=== PATIENT | female | born 1970 | race African-American/Black ===

== ENCOUNTER 2020-03-14 08:23 | Inpatient (IN) | payer BC, OTHER ==
[~2020-03-14] VITALS: Ht 175.3 cm; Wt 97.8 kg
[~2020-03-14 08:23] MED LIST: AMOX-291; HYDR473S19
[2020-03-14] MEDS ORDERED: HYDROmorphone 1 MG/ML, 1ML INJ ONE ×2 (09:07→10:13)
[2020-03-14] MEDS ORDERED: KETOROLAC 30 MG/1 ML ONE (09:07)
[2020-03-14] MEDS ORDERED: DIAZEPAM 5 MG TABLET ONE (09:14)
--- NOTE | 2020-03-14 09:20 | NUR ---
PRESENTS WITH WORSENING OF RIGHT HIP PAIN X4 DAYS. TOOK OUT THE TRASH TODAY AND MADE IT MUCH WORSE FULL ROM BUT WITH SIGNIFICANT PAIN, NO BOWEL OR BLADDER ABNORMALITIES MEDICATED PER EMAR FOR RIGHT HIP PAIN RADIATING DOWN LEG RATED AT 10/10 WAS DROPPED OFF-HAS RIDE
[2020-03-14] MEDS ORDERED: KETOROLAC 30 MG/1 ML IM ONE (09:30)
[2020-03-14] MEDS ORDERED: DIAZEPAM 5 MG TABLET PO ONE (09:30)
[2020-03-14] MEDS ORDERED: HYDROmorphone 1 MG/ML, 1ML INJ IM ONE (09:30)
--- NOTE | 2020-03-14 09:58 | NUR ---
WITH REASSESSMENT PAIN SLIGHTLY IMPROVED TO 9/10 NEURO EXAM REMAINS UNCHANGED NEW ORDERS REVIEWED-PIV PLACED-TO MEDICATE SHORTLY/OBTAIN CT
[2020-03-14] MEDS ORDERED: ONDANSETRON 2MG/ML, 2ML IVPush ONE (10:00)
[2020-03-14] MEDS ORDERED: MORPHINE SULFATE 4 MG/ML, 1ML IVPush PRN (10:00)
[2020-03-14] MEDS ORDERED: SODIUM CHLORIDE FLUSH 10ML SYR IVF ONE (10:00)
[2020-03-14] MEDS ORDERED: ONDANSETRON 2MG/ML, 2ML ONE (10:13)
--- NOTE | 2020-03-14 10:19 | NUR ---
MEDICATED PER EMAR TO CT SCAN
[2020-03-14] MEDS ORDERED: HYDROmorphone 2 MG/ML, 1ML IVPush ONE (10:30)
[2020-03-14 10:40] LABS: BASOPHILS # (AUTO) 0.01 x10^3/uL (0-0.1); BASOPHILS % (AUTO) 0 % (0-1); EOSINOPHILS # (AUTO) 0.01 x10^3/uL (0-0.4); EOSINOPHILS % (AUTO) 0 % (1-7); LYMPHOCYTES # (AUTO) 1.35 x10^3/uL (1-3.4); LYMPHOCYTES % (AUTO) 26 % (22-44); MD NO; MEAN CORPUSCULAR HEMOGLOBIN 33.7 pg (27.0-34.8); MEAN CORPUSCULAR HGB CONC 33.1 g/dL (32.4-35.8); MEAN CORPUSCULAR VOLUME 101.8 fL (80-100); MEAN PLATELET VOLUME 7.8 fL (7.4-10.4); MONOCYTES % (AUTO) 4 % (2-9); NEUTROPHILS # (AUTO) 3.64 x10^3/uL (1.8-6.8); NEUTROPHILS % (AUTO) 70 % (42-75); PLATELET COUNT 235 x10^3/uL (130-400); RED BLOOD COUNT 4.06 x10^6/uL (3.82-5.3); RED CELL DISTRIBUTION WIDTH 13.8 % (9.6-15.2)
[2020-03-14 11:11] LABS: CHLORIDE 107 mmol/L (98-107)
[2020-03-14] MEDS ORDERED: LIDODERM 5% PATCH TD ONE ×2 (11:14→11:30)
[2020-03-14 11:18] LABS: ANION GAP 7 mmol/L (5-15); CALCIUM 8.6 mg/dL (8.5-10.1); CREATININE 0.86 mg/dL (0.55-1.02)
--- NOTE | 2020-03-14 12:10 | NUR ---
With reassessment pain improved to 6/10. Patient calm/interacting/able to lay still in bed Updated on poc
[2020-03-14 12:27] VITALS: BP 133/85
[2020-03-14 13:21] VITALS: BP 133/85
[2020-03-14] MEDS: LACTATED RINGERS 1,000 ML IV SCH (14:30)
[2020-03-14] MEDS ORDERED: POLYETHYLENE GLYCOL 17 GM PACKET PO PRN (14:30)
[2020-03-14] MEDS ORDERED: ONDANSETRON ODT 4 MG PO PRN (14:30)
[2020-03-14] MEDS ORDERED: BISACODYL 10 MG SUPP PR PRN (14:30)
[2020-03-14] MEDS ORDERED: ONDANSETRON 2MG/ML, 2ML IVPush PRN (14:30)
[2020-03-14] MEDS ORDERED: GABAPENTIN 300 MG CAPSULE PO PRN (14:30)
[2020-03-14] MEDS ORDERED: LABETALOL 5MG/ML, 20ML IVPush PRN (14:30)
[2020-03-14] MEDS ORDERED: morphine SULFATE 10 MG/ML, 1ML IVPush PRN (14:30)
[2020-03-14] MEDS ORDERED: ACETAMINOPHEN 325 MG TABLET PO PRN (14:30)
[2020-03-14] MEDS: ENOXAPARIN 40 MG/0.4 ML SQ SCH (14:49)
[2020-03-14] MEDS: CYCLOBENZAPRINE 10 MG TABLET PO SCH ×2 (14:49→22:26)
[2020-03-14] MEDS: OXYcodone IR 5MG TABLET PO PRN (14:49)
[2020-03-14] MEDS: KETOROLAC 30 MG/1 ML IM PRN (14:49)
[2020-03-14 18:31] VITALS: BP 126/73
[2020-03-14] MEDS: FAMOTIDINE 20 MG TABLET PO SCH (20:36)
[2020-03-14] MEDS: morphine SULFATE 10 MG/ML, 1ML IVPush PRN (20:37)
[2020-03-14] MEDS: LORazepam 1MG TABLET PO PRN (22:32)
[2020-03-14] MEDS: MELATONIN 5 MG TABLET PO PRN (22:32)
[2020-03-15 01:15] VITALS: BP 112/67
[2020-03-15] MEDS: morphine SULFATE 10 MG/ML, 1ML IVPush PRN ×3 (01:25→20:26)
[2020-03-15] MEDS: LACTATED RINGERS 1,000 ML IV SCH ×2 (03:50→17:10)
[2020-03-15 05:49] LABS: HCT (SEDRATE) 38.8 % (34.6-47.8)
[2020-03-15 05:57] LABS: ALBUMIN 3.1 g/dL (3.4-5.0); ANION GAP 5 mmol/L (5-15); CALCIUM 8.4 mg/dL (8.5-10.1); CHLORIDE 107 mmol/L (98-107)
[2020-03-15 05:59] LABS: BASOPHILS # (AUTO) 0.02 x10^3/uL (0-0.1); BASOPHILS % (AUTO) 0 % (0-1); EOSINOPHILS # (AUTO) 0.01 x10^3/uL (0-0.4); EOSINOPHILS % (AUTO) 0 % (1-7); LYMPHOCYTES # (AUTO) 1.97 x10^3/uL (1-3.4); LYMPHOCYTES % (AUTO) 20 % (22-44); MD NO; MEAN CORPUSCULAR HEMOGLOBIN 33.6 pg (27.0-34.8); MEAN CORPUSCULAR HGB CONC 32.5 g/dL (32.4-35.8); MEAN CORPUSCULAR VOLUME 103.5 fL (80-100); MONOCYTES # (AUTO) 0.91 x10^3/uL (0.2-0.8); MONOCYTES % (AUTO) 9 % (2-9); NEUTROPHILS # (AUTO) 6.86 x10^3/uL (1.8-6.8); NEUTROPHILS % (AUTO) 70 % (42-75); PLATELET COUNT 223 x10^3/uL (130-400); RED BLOOD COUNT 3.77 x10^6/uL (3.82-5.3)
[2020-03-15 06:11] LABS: ALANINE AMINOTRANSFERASE 21 U/L (12-78); ALKALINE PHOSPHATASE 51 U/L (45-117); BILIRUBIN,TOTAL 0.3 mg/dL (0.2-1.0); TOTAL PROTEIN 6.7 g/dL (6.4-8.2)
[2020-03-15] MEDS: CYCLOBENZAPRINE 10 MG TABLET PO SCH ×3 (06:37→22:41)
[2020-03-15] MEDS: OXYcodone IR 5MG TABLET PO PRN (07:35)
[2020-03-15] MEDS: SENNA/DOCUSATE TABLET PO SCH (07:36)
[2020-03-15] MEDS: LORazepam 1MG TABLET PO PRN ×2 (07:36→20:22)
[2020-03-15] MEDS: FAMOTIDINE 20 MG TABLET PO SCH ×2 (07:36→20:23)
[2020-03-15 08:18] VITALS: BP 111/73
[2020-03-15] MEDS: KETOROLAC 30 MG/1 ML IM PRN (10:43)
[2020-03-15] MEDS: predniSONE 50MG TABLET PO SCH (12:04)
[2020-03-15 13:30] VITALS: BP 115/72
[2020-03-15] MEDS: PANTOPRAZOLE 40MG TABLET PO SCH ×2 (14:18→20:23)
[2020-03-15] MEDS: OxyconTIN ER 20 MG TAB.ER PO SCH (14:18)
[2020-03-15] MEDS: ENOXAPARIN 40 MG/0.4 ML SQ SCH (14:19)
[2020-03-15 19:23] VITALS: BP 146/82
[2020-03-15] MEDS: MELATONIN 5 MG TABLET PO PRN (20:22)
[2020-03-16] MEDS: OxyconTIN ER 20 MG TAB.ER PO SCH ×3 (02:09→21:12)
[2020-03-16] MEDS: OXYcodone IR 5MG TABLET PO PRN ×4 (02:16→19:23)
[2020-03-16] MEDS: LACTATED RINGERS 1,000 ML IV SCH (03:45)
[2020-03-16] MEDS: CYCLOBENZAPRINE 10 MG TABLET PO SCH (06:19)
[2020-03-16] MEDS: PANTOPRAZOLE 40MG TABLET PO SCH ×2 (08:45→21:11)
[2020-03-16] MEDS: FAMOTIDINE 20 MG TABLET PO SCH ×2 (08:45→21:11)
[2020-03-16] MEDS: SENNA/DOCUSATE TABLET PO SCH (08:45)
[2020-03-16] MEDS: predniSONE 50MG TABLET PO SCH (08:45)
[2020-03-16] MEDS: METHOCARBAMOL 1,000 MG in DEXTROSE 5% 100 ML IV SCH ×3 (08:46→21:13)
[2020-03-16] MEDS ORDERED: LIDODERM REMOVE PATCH NOTE XX SCH (09:00)
[2020-03-16 09:20] VITALS: BP 117/77
[2020-03-16 09:23] VITALS: BP 167/81
[2020-03-16] MEDS ORDERED: DIPHENHYDRAMINE 12.5MG/5ML, 10ML UDC PO PRN (09:30)
[2020-03-16] MEDS ORDERED: LIDODERM REMOVE PATCH NOTE XX PRN (09:30)
[2020-03-16] MEDS ORDERED: DIPHENHYDRAMINE 25 MG CAPSULE PO PRN (11:00)
[2020-03-16] MEDS: LIDODERM 5% PATCH TD PRN (11:28)
[2020-03-16] MEDS: DIPHENHYDRAMINE 12.5MG/5ML, 10ML UDC PO PRN ×2 (11:28→21:09)
[2020-03-16] MEDS: KETOROLAC 30 MG/1 ML IM PRN (12:44)
[2020-03-16] MEDS: morphine SULFATE 10 MG/ML, 1ML IVPush PRN ×2 (12:45→21:32)
[2020-03-16 14:30] VITALS: BP 123/76
[2020-03-16] MEDS: ENOXAPARIN 40 MG/0.4 ML SQ SCH (14:49)
[2020-03-16 19:24] VITALS: BP 130/79
[2020-03-16] MEDS: MELATONIN 5 MG TABLET PO PRN (21:11)
[2020-03-16] MEDS: LORazepam 1MG TABLET PO PRN (21:12)
[2020-03-16] MEDS ORDERED: DIPHENHYDRAMINE 12.5MG/5ML, 10ML UDC PO ONE ×2 (23:30→23:45)
[2020-03-17 01:04] VITALS: BP 143/82
[2020-03-17] MEDS ORDERED: DIPHENHYDRAMINE 12.5MG/5ML, 10ML UDC PO PRN (05:30)
[2020-03-17 06:19] VITALS: BP 123/66
[2020-03-17] MEDS: OXYcodone IR 5MG TABLET PO PRN ×2 (06:33→11:53)
[2020-03-17] MEDS: METHOCARBAMOL 1,000 MG in DEXTROSE 5% 100 ML IV SCH ×4 (08:36→22:10)
[2020-03-17] MEDS: SENNA/DOCUSATE TABLET PO SCH (08:37)
[2020-03-17] MEDS: PANTOPRAZOLE 40MG TABLET PO SCH ×2 (08:37→22:08)
[2020-03-17] MEDS: FAMOTIDINE 20 MG TABLET PO SCH ×2 (08:37→22:07)
[2020-03-17] MEDS: OxyconTIN ER 20 MG TAB.ER PO SCH ×2 (08:37→22:07)
[2020-03-17] MEDS: LORazepam 1MG TABLET PO PRN ×2 (11:52→22:06)
[2020-03-17] MEDS: ENOXAPARIN 40 MG/0.4 ML SQ SCH (15:10)
[2020-03-17] MEDS: morphine SULFATE 10 MG/ML, 1ML IVPush PRN (15:11)
[2020-03-17] MEDS: LIDODERM 5% PATCH TD PRN (15:14)
[2020-03-17 15:16] VITALS: BP 138/86
[2020-03-17] MEDS ORDERED: BISACODYL 10 MG SUPP PR PRN (17:00)
[2020-03-17] MEDS ORDERED: POLY17PO5 PO (18:48)
[2020-03-17] MEDS ORDERED: PRED10TA PO (18:48)
[2020-03-17] MEDS ORDERED: Senna/Docusate PO (18:48)
[2020-03-17] MEDS ORDERED: OXYC20TA59 PO (18:48)
[2020-03-17] MEDS ORDERED: [UNRECOGNIZED DRUG - CODE] PO (18:48)
[2020-03-17] MEDS ORDERED: OXYC5TAB3 PO (18:48)
[2020-03-17] MEDS ORDERED: MELA5TAB14 PO (18:48)
[2020-03-17] MEDS ORDERED: ONDA4TAB13 PO (18:48)
[2020-03-17 19:38] VITALS: BP 136/79
[2020-03-17] MEDS: MELATONIN 5 MG TABLET PO PRN (22:08)
[2020-03-17] MEDS: POLYETHYLENE GLYCOL 17 GM PACKET PO SCH (22:09)
[2020-03-17] MEDS: METHOCARBAMOL 750 MG TABLET PO SCH (23:50)
[2020-03-18 01:30] VITALS: BP 131/77
[2020-03-18 06:53] VITALS: BP 136/91
[2020-03-18] MEDS: PANTOPRAZOLE 40MG TABLET PO SCH (08:25)
[2020-03-18] MEDS: METHOCARBAMOL 750 MG TABLET PO SCH ×2 (08:25→16:56)
[2020-03-18] MEDS: FAMOTIDINE 20 MG TABLET PO SCH (08:25)
[2020-03-18] MEDS: OxyconTIN ER 20 MG TAB.ER PO SCH (08:25)
[2020-03-18] MEDS: SENNA/DOCUSATE TABLET PO SCH (08:36)
[2020-03-18] MEDS: POLYETHYLENE GLYCOL 17 GM PACKET PO SCH (08:36)
[2020-03-18] MEDS ORDERED: LIDOCAINE 1%, 10ML ONE (10:36)
[2020-03-18] MEDS ORDERED: TRIAMCINOLONE ACETONIDE 40 MG/ML, 1ML ONE (10:36)
[2020-03-18 14:59] VITALS: BP 124/75
[2020-03-18] MEDS: OXYcodone IR 5MG TABLET PO PRN (15:32)
[2020-03-18] MEDS: ENOXAPARIN 40 MG/0.4 ML SQ SCH (15:32)
[2020-03-18] MEDS ORDERED: GABAPENTIN 300 MG CAPSULE PO SCH (16:00)
== END 2020-03-18 18:09 | disposition home or self-care (01) | DRG 552 ==
LOC: ED 10:14 → EDIP 11:19 → 3N 12:26
PROVIDERS: ADMIT Family Medicine; ATTEND Internal Medicine
PROC: 3E0U33Z Introduction of Anti-inflammatory into Joints, Percutaneous Approach (ICD-10-PCS; principal; 2020-03-18)
PROC: 3E0U3BZ Introduction of Anesthetic Agent into Joints, Percutaneous Approach (ICD-10-PCS; 2020-03-18)
DX: M51.17 Intervertebral disc disorders with radiculopathy, lumbosacral region (principal); F17.210 Nicotine dependence, cigarettes, uncomplicated; M41.9 Scoliosis, unspecified; M53.3 Sacrococcygeal disorders, not elsewhere classified; N83.201 Unspecified ovarian cyst, right side; K59.00 Constipation, unspecified; Z82.49 Family history of ischemic heart disease and other diseases of the circulatory system; Z79.899 Other long term (current) drug therapy
CPT/HCPCS: 36415; 72220; J3490; 62322; 62323; 72131; 72148; 80048; 80053; 83735; 84443; 85025; 85651; G0378; J1170; J1650; J1885; J2405; J3301; J2270; J2800; J7120; J7512